=== PATIENT | female | born 1960 | race Caucasian/White ===

== ENCOUNTER → 2018-04-07 09:32 | Outpatient (CLI) | payer OTHER ==
[~2018-04-07 09:32] MED LIST: EFFEXOR XR150 MG PO; PERCOCET 7.5/321 TAB PO
[2018-05-15 08:08] VITALS: BMI 26.5
== END | disposition home or self-care (01) ==
LOC: D.RAD 09:32
DX: S43.432A Superior glenoid labrum lesion of left shoulder, initial encounter (principal)

== ENCOUNTER 2018-05-15 06:45 | Day surgery (SDC) | payer OTHER ==
[2018-05-14 09:25] LABS: HEMATOCRIT 40.6 % (36.0-48.0); HEMOGLOBIN 14.3 g/dL (12-16); MCH 32.9 pg (26.0-34.0); MCHC 35.2 g/dL (31.0-37.0); MCV 93.3 fL (80.0-100.0); RBC 4.35 10x6/uL (4.00-5.40)
[~2018-05-15] VITALS: Ht 154.9 cm; Wt 63.5 kg
--- NOTE | ~2018-05-15 | OP ---
PATIENT NAME: JARON PERALES MEDICAL RECORD: [id number] :64 LOCATION:[facility] ADMISSION DATE: SURGEON: KACIE SMITH DO DATE OF OPERATION: 05/15/2018 PROCEDURE PERFORMED: Left shoulder scope with subacromial decompression, a mini open rotator cuff repair and biceps tenodesis. PREOPERATIVE DIAGNOSES: Left shoulder rotator cuff tear, SLAP tear and subacromial impingement. POSTOPERATIVE DIAGNOSES: Left shoulder rotator cuff tear, SLAP tear and subacromial impingement. INDICATIONS: Ms. Perales is a 58-year-old female who has had left shoulder pain for quite some time. She has been dealing with it and having the pain with overhead activities and some weakness. She saw me in the office, got an MRI with arthrogram suspecting a SLAP tear and indeed showed a SLAP tear, also a partial-thickness 50% of the width of the rotator cuff tendon supraspinatus. I informed her of these findings and asked her if she would like to do, she said she tried physical therapy and nonoperative management. She would like to get it fixed. She is aware of the risks and benefits of the procedure including infection, bleeding, need for further surgery, damage to nerves and vessels and she consented to the procedure. She is aware of the pre and postop protocols as well. SURGEON: Kacie Smith DO DESCRIPTION OF PROCEDURE: The patient was given a block preoperatively by anesthesia and taken to the operative suite, laid in the right lateral recumbent position with the left arm up. Then, the left shoulder was prepped and draped in sterile fashion. Timeout was performed. Everyone was in agreement with the correct side, site, patient and procedure. We then began the procedure by entering the shoulder joint with an 18-gauge spinal needle and insufflating the joint itself with saline 60 cc and then the 11-blade scalpel was used to establish posterior portal, entered the shoulder joint and noted the SLAP tear right away. The anterior portal was then established with an 18-gauge spinal needle and a trocar and then a burner was entered in. The biceps was then tenotomized and the rotator cuff was inspected, posteriorly looked intact, but anteriorly, there was a small greater than 50% of the width of the tendon tear noted, and having discussed with the patient prior she said that she would rather have it taken down and repaired, and having continued pain with it. Then, knowing that, it was marked with a spinal needle. I then went to the subacromial space and did a decompression and then opened, from this the lateral portal had been established. The AC joint was also inspected in the subacromial space and not seem to have any arthritis in it and it had a good space between the acromion and the clavicle. After the subacromial decompression was done, we then opened from the lateral portal. A sharp dissection was made down to the rotator cuff tear. Posteriorly, there was a small tear noted on the bursal side, which was repaired and then anteriorly the repair was made also at the small tear from the articular side, this using medial and lateral anchor sites. Then, the suture was passed with Scorpion. Once this was done, the attention was drawn to the biceps tenodesis. A small incision was made in the subpectoral area. The biceps tendon was taken out through the incision, whipstitched and then a single button was used to tenodese the biceps tendon down to the humerus OPERATIVE REPORT [id number] JARON PERALES after it had been whipstitched, and then this was tied down and then oversewn with the excess suture and then tied down, giving a nice repair of tenodesis site. The wounds were then thoroughly irrigated. The deltoid fascia was then incised. The rotator cuff was repaired with 2-0 Vicryl in a running fashion, then the skin was closed with 2-0 Vicryl at that site and the bicep tenodesis site and 4-0 Monocryl was run on the skin and each of the sites, 4-0 Monocryl was then used to close the portal, the anterior and posterior portal sites with simple inverted interrupted. Dermabond was then placed over each of the sites and a Telfa and Tegaderm, and the patient was awakened and taken to recovery in stable condition. Blood loss was minimal. COMPLICATIONS: None. TRANSINT:[id number] Voice Confirmation ID: [id number] DOCUMENT ID: [id number] KACIE SMITH DO at 1617 CC: [id number] DICTATION DATE: 05/15/18 1231 [employer] MACHINE SERVICER REPAIRER: 05/15/18 1324 [facility] 05/15/18 [facility] [address] [place] [address]
[~2018-05-15 06:45] MED LIST changes: -PERCOCET 7.5/321 TAB PO
[2018-05-15 08:03] VITALS: BP 128/85; BMI 26.5
[2018-05-15 08:08] VITALS: BP 128/85; Ht 154.9 cm; Wt 63.5 kg
[2018-05-15] MEDS ORDERED: PERCOCET 7.5/321 TAB PO (12:37)
== END 2018-05-15 14:52 | disposition home or self-care (01) ==
LOC: D.OPS 06:45 → D.PAN 07:30 → D.OPS 07:30 → D.PAN 09:15 → D.OPS 14:52
PROVIDERS: Anesthesiology
DX: M75.112 Incomplete rotator cuff tear or rupture of left shoulder, not specified as traumatic (principal); S43.432A Superior glenoid labrum lesion of left shoulder, initial encounter; M75.42 Impingement syndrome of left shoulder; Z01.812 Encounter for preprocedural laboratory examination

== ENCOUNTER 2018-07-31 10:20 | Day surgery (SDC) | payer OTHER ==
[~2018-07-31] VITALS: Ht 154.9 cm; Wt 61.7 kg
--- NOTE | ~2018-07-31 | OP ---
PATIENT NAME: JARON PERALES MEDICAL RECORD: [id number] :64 LOCATION:[facility] ADMISSION DATE: SURGEON: KACIE SMITH DO DATE OF OPERATION: 07/31/2018 PROCEDURE PERFORMED: Left shoulder arthroscopy with lysis of adhesions and manipulation under anesthesia. PREOPERATIVE DIAGNOSES: Left shoulder adhesive capsulitis after rotator cuff repair. POSTOPERATIVE DIAGNOSES: Left shoulder adhesive capsulitis after rotator cuff repair. INDICATIONS: Ms. Perales is a 58-year-old female who had a rotator cuff repair about 12 weeks ago. She was doing well initially postop and then started to get a frozen shoulder. She worked very hard with therapy and this did not help. Her motion was stuck at just below 90 degrees of forward flexion. No external rotation. Internal rotation of the hip abduction to about 80. After seeing this and talking to her told her she would probably benefit from a manipulation and we were unaware of the cause, other than she had had surgery. The patient was aware of the risks including, fracture, need for further surgery, damage to nerves and vessels, infection, bleeding and she consents to the procedure. SURGEON: Kacie Smith DO DESCRIPTION OF PROCEDURE: The patient was given a block anesthesia in the preoperative area and taken to the operative suite, laid in the right lateral decubitus position, given 900 mg clindamycin preoperatively. A timeout was performed, everyone was in agreement with the correct site, side, the patient. The left shoulder was then prepped and draped in sterile fashion. The shoulder joint was then entered with an 18-gauge spinal needle, insufflated with approximately 30 mL of normal saline. Once this was done, the trocar was entered into the shoulder joint after 11 blade scalpel was used to make the incision at portal. Anterior portal was then established with an 18 blade spinal needle into the thickness of the capsule on the anterior aspect. This was somewhat difficult. A switching stick was used and the anterior portal was established into the shoulder joint. A shaver and a burner were used to clean out the debris in the shoulder and the very thick capsule on the rotator interval was opened up. This was very thickened. It was opened up just superior to the subscapularis and the tendon was seen to be intact. The trocar was then taken out of the shoulder and put into the subacromial space and this was full of adhesions, very difficult to see. The burner was brought in after lateral portal was established with an 18-gauge spinal needle and then a #11 blade scalpel and the burner was then burned out the adhesions in the subacromial space and on the lateral humerus Then the scope was withdrawn and the manipulation began first with external rotation at the side, got good release with that and then abduction to 150 degrees almost to say 170 degrees and then abduction with external rotation to 90, internal rotation to 90 and then forward flexion to 180 and internal rotation across the body. The portal sites were then closed with 4-0 Monocryl in inverted interrupted fashion. Dermabond, Telfa and Tegaderm were then placed on the wounds and the patient was awakened and taken to recovery in stable condition BLOOD LOSS: Minimal. OPERATIVE REPORT [id number] JARON PERALES COMPLICATIONS: None. TRANSINT:[id number] Voice Confirmation ID: [id number] DOCUMENT ID: [id number] KACIE SMITH DO at 1037 CC: [id number] DICTATION DATE: 07/31/18 1619 BUSINESS APPLICATIONS ANALYST: 07/31/18 193 [facility] 07/31/18 [facility] [address] [place] [address]
[~2018-07-31 10:20] MED LIST changes: +CYMBALTA60 MG PO; +PERCOCET 7.5/321 TAB PO
[2018-07-31 10:45] LABS: HEMATOCRIT 39.3 % (36.0-48.0); HEMOGLOBIN 13.3 g/dL (12-16); MCHC 33.8 g/dL (31.0-37.0); MCV 94.5 fL (80.0-100.0); MEAN PLATELET VOLUME 9.1 fL (7.4-10.4); RBC 4.16 10x6/uL (4.00-5.40); RDW 13.9 % (11.5-14.5)
[2018-07-31 13:36] VITALS: BP 139/82; Ht 154.9 cm; Wt 61.7 kg
[2018-07-31] MEDS ORDERED: OXYCODONE HCL10 MG PO (16:12)
[2018-07-31] MEDS ORDERED: VISTARIL50 MG PO (16:13)
[2018-07-31] MEDS ORDERED: TORADOL10 MG PO (16:13)
== END 2018-07-31 18:02 | disposition home or self-care (01) ==
LOC: D.OPS 10:20 → D.PAN 13:00 → D.OPS 14:00
PROVIDERS: Anesthesiology
DX: M75.02 Adhesive capsulitis of left shoulder (principal); M96.89 Other intraoperative and postprocedural complications and disorders of the musculoskeletal system; Z01.812 Encounter for preprocedural laboratory examination

== ENCOUNTER → 2019-04-19 14:57 | Outpatient (CLI) | payer OTHER ==
[2018-07-31 13:36] VITALS: BMI 25.7
[~2019-04-19 14:57] MED LIST changes: +OXYCODONE HCL10 MG PO; +TORADOL10 MG PO; +VISTARIL50 MG PO
== END | disposition home or self-care (01) ==
LOC: D.MRI 14:57
PROVIDERS: ATTEND Orthopaedic Surgery
DX: M54.12 Radiculopathy, cervical region (principal)